=== PATIENT | female | born 1990 | race Caucasian/White ===

== ENCOUNTER → 2023-08-24 | Day surgery (SDC) | payer MEDICAID ==
[~2023-08-24] VITALS: Ht 157.5 cm; Wt 67.1 kg
[~2023-08-24] MED LIST: ALBU18HF2 IH; AMPH20TA3 PO; BUPIVACAINE HCL/PF 0.5% (5MG/ML) 10ML ONE; CEFAZOLIN SODIUM 1000MG/VIAL ONE; ESOM40CA PO; FENTANYL CITRATE/PF 50MCG/ML 2ML VIAL ONE; FLUO20CA33 PO; GLYCOPYRROLATE 0.2 MG/ML 2ML VIAL ONE; HYDROCODONE/ACETAMINOPHEN 5/325MG TABLET PO SCH; LACTATED RINGERS 1,000 ML IV SCH; MIDAZOLAM HCL 2 MG/2 ML VIAL ONE; MONT-46 PO; PROP10TA10 PO; PROPOFOL 200MG/20ML VIAL IV ONE; ROCURONIUM BROMIDE 10MG/ML VIAL 5ML IV ONE; SKIN ADHESIVE 0.7 GM EA TOP ONE; SUCCINYLCHOLINE CHLORIDE 200MG/10ML IV ONE
[2023-08-24 07:18] LABS: UCG SCREEN NEGATIVE
[2023-08-24] MEDS: HYDROMORPHONE HCL/PF 2MG/ML CPJ IV PRN ×3 (10:05→11:05)
[2023-08-24 12:38] VITALS: BP 105/74; PULSE 89; RESP 15
== END | disposition home or self-care (01) ==
LOC: OR 06:28
PROVIDERS: ATTEND Surgery
DX: K80.10 Calculus of gallbladder with chronic cholecystitis without obstruction (principal); E78.00 Pure hypercholesterolemia, unspecified; J45.909 Unspecified asthma, uncomplicated; G47.30 Sleep apnea, unspecified; F41.9 Anxiety disorder, unspecified; F32.9 Major depressive disorder, single episode, unspecified; K21.9 Gastro-esophageal reflux disease without esophagitis; Z79.899 Other long term (current) drug therapy; Z98.890 Other specified postprocedural states
CPT/HCPCS: 47562; 81025; 88304; J3010; J3490 ×3; J0690; J2250; J2704; J0330; J1170; J7030